=== PATIENT | male | born 1970 | race Caucasian/White ===

== ENCOUNTER 2022-05-15 20:51 | Emergency (ER) | payer OTHER ==
[~2022-05-15] VITALS: Ht 182.9 cm; Wt 97.5 kg
[2022-05-15 22:05] VITALS: BP_SYST 152
--- NOTE | 2022-05-15 22:18 | NUR ---
52 YR OLD AOX4, AMBULATORY WITH AN UNSTEADY GAIT CHIEF COMPLAINT OF BACK PAIN WITH LEFT KNEE PAIN. PT STATES HIS LEFT KNEE GAVE OUT AND HE FELL AND INJURED HIS BACK ONE WEEK AGO.
--- NOTE | 2022-05-16 00:10 | NUR ---
First contact. pt lying in bed with female visitor present at bedside.
--- NOTE | 2022-05-16 00:40 | NUR ---
Dr. Jiménez present in room.
[2022-05-16] MEDS ORDERED: HYDROcodone/ACETAMIN 5-325 MG TAB (NORCO/ VICODIN) PO ONE (00:45)
[2022-05-16 03:22] VITALS: BP_SYST 176
[2022-05-16] MEDS ORDERED: HYDR-3917 PO (03:32)
[2022-05-16] MEDS ORDERED: IBUP-1969 PO (03:32)
--- NOTE | 2022-05-16 03:46 | NUR ---
Patient given written and verbal discharge instructions and verbalizes understanding. ER MD discussed with patient the results and treatment provided. Patient in stable condition. ID arm band removed. Rx of ibuprofen and hydrocodone given. Patient educated on pain management and to follow up with PMD. Opportunity for questions provided and answered.
== END 2022-05-16 03:46 | disposition home or self-care (01) ==
LOC: SED 20:51
DX: S30.0XXA Contusion of lower back and pelvis, initial encounter (principal); W18.39XA Other fall on same level, initial encounter; Y93.89 Activity, other specified; Y92.89 Other specified places as the place of occurrence of the external cause; Y99.8 Other external cause status
CPT/HCPCS: 72110; 72131; 73564; 76376; 99284